=== PATIENT | male | born 1980 | race Caucasian/White ===

== ENCOUNTER 2019-09-27 08:29 | Emergency (ER) | payer BC ==
--- OUTSIDE RECORDS SUMMARY | 2019-09-27 08:38 | XMS REPORT | Continuity of Care Document ---
:1980 Author Organization [employer] [facility] Address [address] [place] [address] Phone Care Team Providers Name Role Phone LILI GROVE Unavailable Unavailable Allergies, Adverse Reactions, Alerts Substance Reaction Status No Known Allergies Active Medications Medication Instructions Dosage Effective Dates Status Comments (start - stop) Bactrim DS 800 take 1 tablet by 1.00 tablet - No Longer mg-160 mg tablet oral route every Active 12 hours Problems Condition Effective Dates (start - stop) Clinical Status Abscess of skin of abdomen Other specified disorders of teeth and - supporting structures Tick bite of abdomen, initial encounter ^ Bitten or stung by nonvenomous insect and other nonvenomous arthropods, initial encounter Scabies - Abscess or cellulitis of groin Abscess or cellulitis of groin Abdominal pain Pain, abdominal, other specified site - Cellulitis Dyspepsia Burping Cellulitis Cellulitis Eye discomfort Glossitis Glossitis - Glossitis - Tinea cruris Dermatophytosis, groin - Enteritis, infectious NOS Acute Procedures Procedure Date Office/outpatient visit,est, mod Medical Services After Hours Results Test Name Date and Time Measure Units Reference Range Abnormal Flag Status Comments Unknown Encounters Encounter Practice Location Reason(s) Diagnoses Date Provider Providers Description For Visit Copied on Encounter Office/outpa [employer] Soft Abscess of skin of ALEXANDER abel [facility], Walk-In tissue abdomen LILI. visit,est, [address] Center swelling 0 [address] Emmanuel mod Viet Kris ([facility], complaint) [place], [place], [place], [address]. [address], [place] tel:[phone] tel:[phone] - S Other specified [facility] [employer], Walk-In disorders of teeth LILI. Center and supporting 8 [address] structures [place], [place], [place], [address]. [address], [place] tel:[phone] tel:[phone] - S Tick bite of [facility]LEX[facility]ER [employer], Walk-In abdomen, initial LILI. Center encounter ^Bitten 7 [address] or stung by [facility], nonvenomous insect [facility] and [place], [place], [place], [place], nonvenomous [address]. [address], [place] arthropods, tel:[phone] tel:[phone] initial encounter [phone] - S Scabies Yovany- [facility], Urology AHMED. [facility] [address], [place], [place], [place], [address]. [address], [place] tel:[phone] tel:[phone] - S Abscess or October- [facility]ONT[facility], Primary cellulitis of TANESHA. Care groin 5 [address] [facility], Street, Count includes the [facility] [address]. [place], [place], tel:[phone], [place] [address] tel:[phone] - S Abscess or October- PONTICIELLO [employer], Primary cellulitis of TANESHA. Care groinAbdominal 5 [address]once painPain, [address], Street, abdominal, [facility] specified site [address]. [place], [place], tel:[phone], [place] [address] tel:[phone] 0001 - S CellulitisDyspepsi May-0 ALEXANDER [facility], Walk-In a 2 LILI. Center 5 [facility] [place], [place], [place], [address]. [address], [place] tel:[phone] tel:[phone] 2019 - S BurpingCellulitis Sep-2 S Inc, Walk-In [address] [place] [address], [address], [place] tel:[phone] 0001 - S Cellulitis Sep-1 [facility] Inc, Walk-In [address], [address], [place] tel:[phone] 2019 - S Eye discomfort Nov- ALEXANDER [facility], Walk-In LILI. Center [address] [place] [address], [place], [address]. [address], [place] tel:[phone] tel:[phone] 2019 - S GlossitisGlossitis Aug- WALKER [facility], Walk-In Glossitis LAUREN. 1302 Provider: Estuardo[address] [employer] 1 [facility] [place], [address]. Vinicius tel:[phone] [place], [address], [place] tel:[phone] 2019 - S Tinea Yovany- [employer]. [facility] Inc, Walk-In crurisDermatophyto [facility] 4433 Provider: 3357 Center sis, groin [address] [facility] [place], [address]. Vinicius tel:[phone] [place], [address], [place] tel:[phone] 0001 - S Enteritis, Nov- Referring [facility] Inc, Walk-In infectious NOS Provider: [address], [place], [address], tel:[phone] Family History Family Member Diagnosis Age At Onset Unknown Immunizations Vaccine Date Status Comments Immunization Unknown Payers Payer name Insurance type Covered alliance party ID Authorization(s) Everardo De Guzman [id number] Social History Type Description Quantity Date Captured Comments Alcohol Use Details Caffeine Use Details coffee > 6 cups per day Tobacco Use Status Heavy cigarette smoker (20-39 cigs/day) Smoking Status Heavy tobacco smoker Smoking Tobacco Use Cigarette: No Details Available Cigarette: 1 Packs per day Details Vital Signs Date / Height Weight BMI Pulse Blood Temperature Respiratory Body Head BMI Time: Rate Pressure Rate Surface Circumference percentile Area 72.00 198.86 26.9 56 114/72 97.10 F 18 /min in lbs 7 /min mm[Hg] 8:16 kg/m AM eter (2) Chief Complaint And Reason For Visit Most recent encounter only, dated '07/10/2019 07:50'. Soft tissue swelling (chief complaint). Description: The swelling occurred 5 days ago and is constant. The severity is moderate and has worsened. The patient denies any history of trauma. left groin. The patient has tenderness pain in the left groin. The patient rates the pain as 5/10 using the Numeric Pain Intensity Scale. Previous diagnostic studies and/or treatments that have been performed/ administered include. Previous diagnostic studies and/or treatments that have not been performed/administered include a biopsy, an Electrocardiogram, an excision, foreign body removal, an incision/drainage, labs, medication(s), radiographs and sutures. The swelling is aggravated by local pressure. Interventions the patient has tried have not provided any relief. The swelling is associated with skin discoloration, warmth, redness and tender to touch. The patient denies any appetite change, bleeding, blistering, bruising, chest pain, decreased mobility, diaphoresis, dyspnea, fatigue, fever, generalized weakness, headache, joint pain, lymphadenopathy, malaise, myalgia, numbness, paroxysmal nocturnal dyspnea, pruritus, purulent drainage, rash, weight gain and weight loss. Additional information: Pt statednoticed approx wednesday last week, reported got worse starting wednesday. reported has history of infected lymph node on that side approx 4 yrs ago.. Reason For Referral Reason For Referral Unknown Plan Of Care Date Type Action Status Referral Ordered: ordered . Urology. Referral Ordered: ordered . Gastroenterology. Appointment date/timeframe: 12/05/2014 Date Type Problem Goal Intervention Status Start Date Unknown History Of Present Illness Encounter Date Complaint History Of Present Illness Soft tissue swelling The swelling occurred 5 days ago and is constant. The severity is moderate and has worsened. The patient denies any history of trauma. left groin. The patient has tenderness pain in the left groin. The patient rates the pain as 5/10 using the Numeric Pain Intensity Scale. Previous diagnostic studies and/or treatments that have been performed/administered include. Previous diagnostic studies and/or treatments that have not been performed/administered include a biopsy, an Electrocardiogram, an excision, foreign body removal, an incision/drainage, labs, medication(s), radiographs and sutures. The swelling is aggravated by local pressure. Interventions the patient has tried have not provided any relief. The swelling is associated with skin discoloration, warmth, redness and tender to touch. The patient denies any appetite change, bleeding, blistering, bruising, chest pain, decreased mobility, diaphoresis, dyspnea, fatigue, fever, generalized weakness, headache, joint pain, lymphadenopathy, malaise, myalgia, numbness, paroxysmal nocturnal dyspnea, pruritus, purulent drainage, rash, weight gain and weight loss. Additional information: Pt stated noticed approx wednesday last week, reported got worse starting wednesday. reported has history of infected lymph node on that side approx 4 yrs ago.. Functional Status Encounter Date Functional Assessment Cognitive Assessment Unknown Medications Administered Medication Instructions Dosage Effective Dates (start - stop) Status Comments Drug Treatment Unknown Instructions Date Instruction Additional Information Please apply warm compress for 15-20 Related to Abscess of skin of minutes 2-3 times daily, follow up in abdomen 3-4 days if not improving, sooner if worse Current guidelines do not recommend Related to Tick bite of abdomen, antibiotics for tick bites when tick initial encounter ^ was attached for less than 36hrs or when species of tick is unclear. However you or your child may be at increased risk of developing Lyme disease if you have been in area with high numbers of ticks so watch closely for any signs or symptoms of Lyme disease in the next few weeks. These could include rash (usually red with clear center, bigger than a quarter and usually near the bite, but can be any rash), unexplained fever, joint pain or swelling, numbness, facial droop or fatigue. If any of these symptoms develop please seek medical attention as soon as possible. In the meantime, please cover bite with bandaid and antibiotic ointment to help prevent infection. In the future, always wear long pants and shirt when outside in areas where ticks are common, apply insect repellent when going outdoors, shower after being outside and check for ticks. Thank you for choosing a S WalkIn. We hope and expect that you will be feeling better soon.Any condition can change and some diseases may worsen despite proper treatment. Other problems may begin with vague or unusual symptoms and only over time will the problem become more clear, making it possible to arrive at the correct diagnosis. Your visit today is not a substitute for, or an effort to provide complete medical care. In most cases, you should let your primary care doctor check you again. Tell your doctor about any new or lasting problems. If you do not have a primary care provider, you have been given a list today of local providers who are accepting new patients. All x-rays are interpreted by a radiologist, usually within 48 hours. If there is any important difference between the radiologist's interpretation and what you were told today by the provider, you will be notified. If you had cultures done today, the results will generally be available within 2-3 days. Continue yogurt with live cultures, Related to Abdominal pain referral to GI as requested Ruptured, on antibioitcs, continue to Related to Abscess or cellulitis of monitor, reviewed when to call, if not groin resolved in 2 additional weeks, consider referral Please continue Gas-X for gas and Related to Dyspepsia bloating. I have also prescribed a medication for your upset stomach and nausea that is likely secondary to antibiotic use. Continue yogurt daily, recheck with PCP. Thank you for choosing a S Walk In. We hope and expect that you will be feeling better soon.Any condition can change and some diseases may worsen despite proper treatment. Other problems may begin with vague or unusual symptoms and only over time will the problem become more clear, making it possible to arrive at the correct diagnosis. Your visit today is not a substitute for, or an effort to provide complete medical care. In most cases, you should let your primary care doctor check you again. Tell your doctor about any new or lasting problems. If you do not have a primary care provider, you have been given a list today of local providers who are accepting new patients. All x-rays are interpreted by a radiologist, usually within 48 hours. If there is any important difference between the radiologist's interpretation and what you were told today by the provider, you will be notified. If you had cultures done today, the results will generally be available within 2-3 days. Please finish course of antibiotics as Related to Cellulitis directed. Apply warm compress to groin for 15-20 minutes several times daily. Recheck with primary care provider next week (call for appointment on Wednesday). Return sooner for any new or worsening symptoms (increased pain, redness, swelling, fever, diarrhea, vomiting, etc). Try OTC antacids such as TUMs or Related to Burping rolaids. If these are ineffective, you may try ranitidine. Gas-x (simethicone) may also help with discomfort. Maintain adequate clear fluid intake.If new or worsening symptoms occur then go to the ER for evaluation, otherwise follow up with your primary doctor within 5 days for recheck. Keep the area clean and generally Related to Cellulitis dry. Wash with soap and water. Use warm compresses at least three times daily.If worsening swelling, discharge from wound, fever, or a red streak extending up develop, then return for recheck. Follow up with your primary doctor within 5 days for recheck. Thank you for choosing the [facility] Walk Ins. We hope that you will be feeling better soon. Any condition can change and some diseases may worsen despite proper treatment. Your visit today is not a substitute for, or an effort to provide complete medical care. In most cases, you should follow up with your primary care doctor. If you do not have a primary care provider, a list today of local providers who are accepting new patients can be provided. All x-rays are interpreted by a radiologist, usually within 48 hours. If there is any important difference between the radiologist's interpretation and what you were told today by the provider, you will be notified. If you had cultures done today, the results will be available in 72 hours, depending on the specimen. Please take antibiotic as prescribed. Related to Cellulitis Continue aleve 2x daily. No sexual activity until symptoms resolve. ANY worsening symptoms (increased swelling, redness, pain etc) return immediately for re-evaluation. No improvement within 48 hours, please return for re-check. Please use ointment as directed. Call Related to Eye discomfort your eye doctor tomorrow for full exam, wear protective eyeglasses in the future. Thank you for choosing a [facility] Walk In. We hope and expect that you will be feeling better soon.Any condition can change and some diseases may worsen despite proper treatment. Other problems may begin with vague or unusual symptoms and only over time will the problem become more clear, making it possible to arrive at the correct diagnosis. Your visit today is not a substitute for, or an effort to provide complete medical care. In most cases, you should let your primary care doctor check you again. Tell your doctor about any new or lasting problems. If you do not have a primary care provider, you have been given a list today of local providers who are accepting new patients. All x-rays are interpreted by a radiologist, usually within 48 hours. If there is any important difference between the radiologist's interpretation and what you were told today by the provider, you will be notified. If you had cultures done today, the results will generally be available within 2-3 days.
[2019-09-27 08:43] VITALS: BP 139/86
[2019-09-27] MEDS ORDERED: Fluorescein Sodium TOPICAL* 1 MG TEST STRIP OPHTHALMIC ONE (08:44)
[2019-09-27] MEDS ORDERED: Tetracaine 0.5% OPTH.SOL 4 ML* 1 DROP BTL RIGHT EYE ONE (08:45)
--- NOTE | 2019-09-27 09:04 | UC ---
Eye Complaint HPI - HPI Summary HPI Summary: right eye pain x 2 hrs pain is moderated , 5 out 10 , worse with blinking, better with keeping his eye closed injury at work , was grinding metal and small metal shaving went to his right eye no change in vision, no photophobia , + fb sensation - History of Current Complaint Chief Complaint: UCEye Stated Complaint: EYE COMPLAINT Time Seen by Provider: 09/27/19 08:44 Hx Obtained From: Patient Onset/Duration: Sudden Onset, Lasting Hours - 2, Still Present Timing: Constant Severity Initially: Moderate Severity Currently: Moderate Pain Intensity: 0 Location of Injury: Sclera - right Character: Foreign Body Sensation - right eye Aggravating Factor(s): Blinking Alleviating Factor(s): Darkness Associated Signs And Symptoms: Positive: Drainage (Clear). Negative: Photophobia, Drainage (Purulent), Vision Impairment Bilateral, Vision Impairment Right, Vision Impairment Left, Fever, Swelling Related History: Foreign Body - Allergies/Home Medications Allergies/Adverse Reactions: Allergies Allergy/AdvReac Type Severity Reaction Status Date / Time No Known Allergies Allergy Verified 09/27/19 08:39 Home Medications: Home Medications NK [No Home Medications Reported] 09/27/19 [History Confirmed 09/27/19] PMH/Surg Hx/FS Hx/Imm Hx Previously Healthy: Yes - Surgical History Surgical History: None - Family History Known Family History: Positive: Hypertension - Social History Alcohol Use: Occasionally Substance Use Type: None Smoking Status (MU): Heavy Every Day Tobacco Smoker Type: Cigarettes Amount Used/How Often: 1 PPD Review of Systems All Other Systems Reviewed And Are Negative: Yes Constitutional: Positive: Negative Skin: Positive: Negative Eyes: Negative: Blurred Vision, Diplopia, Drainage, Eye Redness, Photophobia Is Patient Immunocompromised?: No Physical Exam Triage Information Reviewed: Yes Appearance: Well-Appearing, No Pain Distress, Well-Nourished Vital Signs: Initial Vital Signs Temp 97.9 F 09/27/19 08:40 Pulse 76 09/27/19 08:40 Resp 16 09/27/19 08:40 BP 139/86 09/27/19 08:40 Pulse Ox 99 09/27/19 08:40 Vital Signs Reviewed: Yes Eye Exam: Normal Eyes: Positive: Other: - small metal shavig was note on his right upper inner eyelid, was removed usig a Qtip small corneal abrastion at 4 O'clock ENT Exam: Normal Neck exam: Normal Neck: Positive: Supple, Nontender, No Lymphadenopathy Respiratory: Positive: Chest non-tender, Lungs clear, Normal breath sounds Cardiovascular: Positive: RRR, No Murmur, Pulses Normal Eye Complaint Course/Dx - Differential Dx/Diagnosis Provider Diagnosis: Corneal abrasion, right, Foreign body of right eye Discharge ED - Sign-Out/Discharge Documenting (check all that apply): Patient Departure All imaging exams completed and their final reports reviewed: No Studies - Discharge Plan Condition: Stable Disposition: HOME Patient Education Materials: Corneal Abrasion (ED) Referrals: No Primary Care Phys,NOPCP [Primary Care Provider] - If Needed Additional Instructions: follow up if having eye pain, change in vision / photophobia - Billing Disposition and Condition Condition: STABLE Disposition: Home
== END 2019-09-27 09:07 | disposition home or self-care (01) ==
LOC: UCCORT 08:29
DX: T15.01XA Foreign body in cornea, right eye, initial encounter (principal); T15.11XA Foreign body in conjunctival sac, right eye, initial encounter; X58.XXXA Exposure to other specified factors, initial encounter; Y93.89 Activity, other specified; Y92.9 Unspecified place or not applicable; Y99.0 Civilian activity done for income or pay; F17.210 Nicotine dependence, cigarettes, uncomplicated
CPT/HCPCS: 67938; 99201; A9270-GY; G0463